=== PATIENT | female | born 1950 | race Caucasian/White ===

== ENCOUNTER 2019-01-20 05:45 | Day surgery (SDC) | payer OTHER ==
[~2019-01-20 05:45] MED LIST: LEVOTHYROXINE25 MCG PO; [UNRECOGNIZED DRUG - OTHER] PO
[2019-01-20] MEDS ORDERED: TRAM1TAB98 PO (08:21)
[2019-01-20] MEDS ORDERED: DUI500 PO (08:21)
== END 2019-01-20 13:40 | disposition home or self-care (01) ==
LOC: CIR.AMB 05:45
DX: M23.321 Other meniscus derangements, posterior horn of medial meniscus, right knee (principal); M23.341 Other meniscus derangements, anterior horn of lateral meniscus, right knee; M23.351 Other meniscus derangements, posterior horn of lateral meniscus, right knee; M65.861 Other synovitis and tenosynovitis, right lower leg; M17.11 Unilateral primary osteoarthritis, right knee